=== PATIENT | male | born 2000 | race Caucasian/White ===

== ENCOUNTER 2023-01-02 07:03 | Outpatient (CLI) | payer OTHER, SELFPAY ==
--- NOTE | 2023-01-02 07:30 | US_ITS ---
WS: [id number] TESTICULAR ULTRASOUND HISTORY: lump above left testicle for months/years COMPARISON: None available. TECHNIQUE: Real-time and color Doppler imaging or utilized to perform a testicular ultrasound. Right testicle: 4.0 cm x 2.3 cm x 2.8 cm. Normal size and echogenicity. No mass or torsion. Normal color Doppler is present throughout. Systolic and diastolic velocities are both present. No significant hydrocele. Right epididymis: Cystic mass in the epididymal head measures 6 x 6 x 6 mm. There is an additional sm aller adjacent cyst. No increased vascularity and no solid mass. Left testicle: 4.0 cm x 2.8 cm x 2.4 cm. Normal size and echogenicity. No mass or torsion. Normal color Doppler is present throughout. Systolic and diastolic velocities are both present. No significant hydrocele. Left epididymis: Large LEFT epididymal head cyst measuring 2.6 x 2.1 x 1.5 cm. No solid mass and no i ncreased vascularity. IMPRESSION: 1. No testicular mass or torsion. 2. Bilateral epididymal head spermatoceles. The largest on the LEFT measures 2.6 x 2.1 x 1.5 cm.
== END 2023-01-02 07:04 | disposition home or self-care (01) ==
PROVIDERS: PCP Family Medicine; Visit Provider Family Medicine
DX: R19.04 Left lower quadrant abdominal swelling, mass and lump (principal); N43.40 Spermatocele of epididymis, unspecified; N50.3 Cyst of epididymis
CPT/HCPCS: 76870